=== PATIENT | female | born 1975 | race Caucasian/White ===

== ENCOUNTER 2023-07-13 21:16 | Emergency (ER) | payer BC ==
[~2023-07-13] VITALS: Ht 157.5 cm; Wt 56.7 kg
[2023-07-13 21:34] VITALS: BP_SYST 120; PULSE 105; RESP 16; TEMP 97.9; O2SAT 97
[2023-07-13] MEDS ORDERED: AMLO5TAB92 PO (22:16)
[2023-07-13] MEDS ORDERED: CHLO25TA2 PO (22:16)
[2023-07-13] MEDS ORDERED: ATOR40TA68 PO (22:16)
[2023-07-13 22:21] LABS: BILIRUBIN,URINE NEGATIVE (NEGATIVE); BLOOD, URINE TRACE (NEGATIVE); CLARITY/URINE CLEAR (CLEAR); COLOR,URINE YELLOW (YELLOW); GLUCOSE,URINE 3+ (NEGATIVE); KETONES,URINE 1+ (NEGATIVE); LEUKOCYTE ESTERASE ,URINE NEGATIVE (NEGATIVE); NITRITE, URINE NEGATIVE (NEGATIVE); PH,URINE 6.5 (5.0-8.0); PROTEIN URINE NEGATIVE (NEGATIVE); UROBILINOGEN,URINE 0.2 (0.2-1.0)
[2023-07-13] MEDS: ONDANSETRON HCL 4 MG/2 ML VIAL IVP ONE (22:23)
[2023-07-13 22:26] LABS: BACTERIA,URINE RARE /HPF (None Seen); MUCUS,URINE None Seen /LPF (None Seen); RBC,URINE 0-3 /HPF (0-3); WBC,URINE 0-3 /HPF (0-3)
[2023-07-13] MEDS: NACL 0.9% 1,000 ML IV ONE ×2 (22:26→23:54)
[2023-07-13 22:32] LABS: BASOPHILS % (AUTO) 0.6 % (0.0-2.0); EOSINOPHILS # (AUTO) 0.1 K/uL (0.0-0.4); EOSINOPHILS % (AUTO) 0.7 % (0.0-4.0); HEMATOCRIT 39.4 % (36-48); LYMPHOCYTES # (AUTO) 1.6 K/uL (1.0-5.5); LYMPHOCYTES % (AUTO) 19.2 % (20.5-51.5); MEAN CORPUSCULAR HEMOGLOBIN 32 pg (27-31); MEAN CORPUSCULAR HGB CONC 36 % (32-36); MEAN CORPUSCULAR VOLUME 90 fL (79.0-98.0); MONOCYTES # (AUTO) 0.5 K/uL (0.0-1.0); MONOCYTES % (AUTO) 5.7 % (1.7-9.3); NEUTROPHILS # (AUTO) 6.1 K/uL (1.8-7.7); NEUTROPHILS % (AUTO) 73.8 % (40.0-70.0); PLATELET COUNT (AUTO) 281 K/uL (130-430); RED BLOOD CELL COUNT(AUTO) 4.36 MIL/uL (4.2-6.2); RED CELL DISTRIBUTION WIDTH 13.5 % (9.0-15.0); WHITE BLOOD COUNT (AUTO) 8.3 K/uL (4.8-10.8)
[2023-07-13 22:58] LABS: ANION GAP 8 (5-15); CALCIUM 9.1 mg/dL (8.4-11.0); CARBON DIOXIDE 31 mmol/L (23-29); CHLORIDE 96 mmol/L (98-107); CREATININE 0.79 mg/dL (0.55-1.30); GFR AFRICAN AMERICAN 99 mL/min (>90); GLUCOSE 381 mg/dL (74-106); POTASSIUM 3.6 mmol/L (3.5-5.1); SODIUM SERUM 135 mmol/L (136-145); UREA NITROGEN, BLOOD 17 mg/dL (8-21)
[2023-07-13 23:02] LABS: ALANINE AMINOTRANSFERASE 52 U/L (12-78); ALBUMIN 3.4 g/dL (3.4-4.8); ASPARTATE AMINOTRANSFERASE 18 U/L (10-37); BILIRUBIN,DIRECT 0.1 mg/dL (0.0-0.3); GFR NON AFRICAN-AMERICAN 82 mL/min (>90); LIPASE 90 U/L (16-77); TOTAL BILIRUBIN 0.4 mg/dL (0.0-1.0); TOTAL PROTEIN, SERUM 7.4 g/dL (6.4-8.3)
[2023-07-13 23:30] LABS: ACETONE, SERUM NEGATIVE (NEGATIVE)
[2023-07-13] MEDS: INSULIN REGULAR, HUMAN 10 UNITS/0.1 ML, 3 ML VIAL IVP ONE (23:50)
[2023-07-14] MEDS ORDERED: GLYB5TAB7 PO (00:58)
[2023-07-14] MEDS ORDERED: glyBURIDE 5 MG TABLET ONE (01:08)
[2023-07-14] MEDS: glyBURIDE 5 MG TABLET PO ONE (01:12)
[2023-07-14 01:30] VITALS: BP_SYST 129; PULSE 95; RESP 15; TEMP 97.2; O2SAT 97
== END 2023-07-14 01:25 | disposition home or self-care (01) ==
LOC: SED 21:16
DX: E11.65 Type 2 diabetes mellitus with hyperglycemia (principal); E86.0 Dehydration; I10 Essential (primary) hypertension; R42 Dizziness and giddiness; Z79.899 Other long term (current) drug therapy
CPT/HCPCS: 99285; 96374; 96361; 96375; 80076; 80048; 81001; 82009; 83690; 85025; 36415; 81025; 82948; 81000; 81015; J1815; J2405; J7030